=== PATIENT | male | born 2000 | race Caucasian/White ===

== ENCOUNTER 2018-04-22 13:55 | Emergency (ER) | payer OTHER ==
--- NOTE | 2018-04-22 14:54 | ER Report ---
History and Physical Time Seen By MD: 14:54 Hx. of Stated Complaint: PT FELL AND HIT HEAD YESTERDAY. CANT STOP THROWING UP, ALSO COMPLAINS OF DIZZINESS AND HEADACHE HPI/ROS CHIEF COMPLAINT: head injury, vomiting HISTORY OF PRESENT ILLNESS: This is a 17 year old male. He fell and hit his head yesterday. Hit the back of his head, with pain and small swelling there. Having dizziness, nausea, headache, and difficulty concentrating. No vomiting. No vision changes. No neck or back pain or other injuries. History of one concussion when he was younger. Allergies: Coded Allergies: No Known Drug Allergies (Unverified , 04/22/18) Home Meds Active Scripts Ondansetron 4 Mg Odt (ONDANSETRON 4 MG ODT) 4 Mg Tab.rapdis, 4 MG PO Q6H PRN for NAUSEA/VOMITING, #20 TAB 0 Refills Prov:BILL SCHAFFER MD 04/22/18 Reviewed Nurses Notes: Yes Constitutional Vital Sign - Last 24 Hours 04/22/18 04/22/18 04/22/18 04/22/18 14:04 14:57 15:00 15:15 Temp 98.4 Pulse 98 93 89 Resp 16 B/P (MAP) 148/88 123/73 (90) 126/79 (95) Pulse Ox 93 94 95 O2 Delivery Room Air 04/22/18 04/22/18 04/22/18 04/22/18 15:30 15:45 16:00 16:15 Pulse 90 93 93 94 B/P (MAP) 123/80 (94) 103/69 (80) Pulse Ox 89 93 92 91 Intake and Output 04/22/18 04/22/18 04/23/18 15:00 23:00 07:00 Intake Total 1000 ml Balance 1000 ml Physical Exam General Appearance: Alert, no acute distress. Eyes: Pupils equal and round no injection. Extraocular movements are intact. Reactive to light. No nystagmus. ENT: Normal oral mucosa. Moist mucous membranes. Tympanic membranes are normal. Neck: Neck is supple and non tender. Respiratory: Chest is non tender, lungs are clear to auscultation. Cardiac: regular rate and rhythm Gastrointestinal: Abdomen is soft and non tender, no masses, bowel sounds normal. Musculoskeletal: Extremities have full range of motion. No tenderness in spine. Skin: No rashes or lesions. Neuro: Alert and oriented x3, no focal neurologic deficits. DIFFERENTIAL DIAGNOSIS: After history and physical exam differential diagnosis was considered for head injury, with concussion symptoms. Medical Decision Making EKG/Imaging Imaging Head CT scan without contrast COMPARISONS: None ADDITIONAL PERTINENT HISTORY: Fall with head injury and headache. TECHNIQUE: Multiple axial images were obtained from the skull base to the vertex without IV contrast. One of the following dose optimization techniques was utilized in the performance of this exam: Automated exposure control; adjustment of the mA and/or kV according to the patient's size; or use of an iterative reconstruction technique. Specific details can be referenced in the facility's radiology CT exam operational policy. FINDINGS: Midline shift: Negative Ventricles: Negative Brain parenchyma: Negative Extra-axial spaces: Negative Intracranial vasculature: Negative Osseous structures: Negative Paranasal sinuses and mastoid air cells: Negative Surrounding soft tissues and orbits: Negative IMPRESSION: Normal head CT scan without contrast. Report Dictated By: Neil Mcnulty MD at 04/22/2018 3:52 PM ED Course/Re-evaluation ED Course Negative head CT. Discussed with the patient. Symptomatic treatment. See instructions Decision to Disposition Date: Apr 22, 2018 Decision to Disposition Time: 16:16 Depart Departure Latest Vital Signs Vital Signs Date Time Temp Pulse Resp B/P (MAP) Pulse Ox O2 Delivery O2 Flow Rate FiO2 04/22/18 16:15 94 91 04/22/18 16:00 103/69 (80) 04/22/18 14:04 98.4 16 Room Air Impression: Primary Impression: Concussion Condition: Improved Disposition: HOME OR SELF-CARE New Scripts Ondansetron 4 Mg Odt (ONDANSETRON 4 MG ODT) 4 Mg Tab.rapdis 4 MG PO Q6H PRN for NAUSEA/VOMITING, #20 TAB 0 Refills Prov: BILL SCHAFFER MD 04/22/18 Patient Instructions: Concussion (ED) Additional Instructions: Concussion symptoms include: headache, nausea/vomiting, dizziness, difficulty concentrating, blurred vision. These symptoms can be mild or moderate. If symptoms become severe, follow-up evaluation is needed. Avoid any heavy physical activity and avoid any activities that may cause repeat head injury until symptoms resolve. Concussion symptoms can last for days or weeks. There is no way to predict how long these will last. It is okay to sleep after a head injury. Return to the ER for any altered mental status changes or confusion, or if one pupil is larger than the other, or if there are other abnormal or severe changes. Use Tylenol or Ibuprofen as needed for pain. You can use Zofran 4mg tablets every 6 hours as needed for nausea or vomiting. Do not take any medicines containing aspirin until symptoms resolve. Problem Qualifiers Primary Impression: Concussion Encounter type: initial encounter Loss of consciousness presence/duration: without LOC Qualified Codes: S06.0X0A - Concussion without loss of consciousness, initial encounter BILL SCHAFFER MD Apr 22, 2018 14:54
[2018-04-22] MEDS ORDERED: NS(*) 0.9% 1000 ML BAG 1,000 ML IV ONE (15:20)
[2018-04-22] MEDS ORDERED: ONDANSETRON 4 MG/2 ML VIAL IVP ONE (15:20)
--- NOTE | 2018-04-22 15:59 | RADIOLOGY IMAGING REPORT ---
FACILITY: [facility] - [place] PATIENT NAME: Joselito Cervantes : 2000 MR: [id number] V: [id number] EXAM DATE: ORDERING PHYSICIAN: BILL SCHAFFER TECHNOLOGIST: Location: [facility] - [place] Patient: Joselito Cervantes : 2000 Visit/Account:[id number] Date of Sevice: 04/22/[address] scan without contrast COMPARISONS: None ADDITIONAL PERTINENT HISTORY: Fall with head injury and headache. TECHNIQUE: Multiple axial images were obtained from the skull base to the vertex without IV contrast . One of the following dose optimization techniques was utilized in the performance of this exam: Aut omated exposure control; adjustment of the mA and/or kV according to the patient's size; or use of an iterative reconstruction technique. Specific details can be referenced in the facility's radiology CT exam operational policy. FINDINGS: Midline shift: Negative Ventricles: Negative Brain parenchyma: Negative Extra-axial spaces: Negative Intracranial vasculature: Negative Osseous structures: Negative Paranasal sinuses and mastoid air cells: Negative Surrounding soft tissues and orbits: Negative IMPRESSION: Normal head CT scan without contrast. Report Dictated By: Neil Mcnulty MD at 04/22/2018 3:52 PM Report E-Signed By: Neil Mcnulty MD at 04/22/2018 3:55 PM [id number]
[2018-04-22 16:00] VITALS: BP 103/69
[2018-04-22] MEDS ORDERED: ONDA4TAB9 PO (16:20)
== END 2018-04-22 16:31 | disposition home or self-care (01) ==
LOC: ER 14:57
DX: S06.0X0A Concussion without loss of consciousness, initial encounter (principal); W18.30XA Fall on same level, unspecified, initial encounter
CPT/HCPCS: 70450; 96361; 96374; 99284; J2405; J7030